=== PATIENT | female | born 1980 | race Caucasian/White ===

== ENCOUNTER 2018-04-10 18:27 | Emergency (ER) | payer MEDICAID, OTHER ==
[~2018-04-10] VITALS: Ht 152.4 cm; Wt 70.0 kg
[2018-04-10] MEDS ORDERED: HYDROcodone/APAP 5/325 TABLET ONE ×2 (19:20→20:45)
[2018-04-10] MEDS: HYDROcodone/APAP 5/325 TABLET PO PRN ×2 (19:21→19:23)
[2018-04-10] MEDS ORDERED: LIDOCAINE-MPF 1%, 5ML INFIL ONE (20:30)
[2018-04-10 21:00] VITALS: BP 128/84
[2018-04-10] MEDS ORDERED: HYDROcodone/APAP 5/325 TABLET PO ONE (21:00)
== END 2018-04-10 20:52 | disposition home or self-care (01) ==
LOC: ED 19:00
DX: S93.401A Sprain of unspecified ligament of right ankle, initial encounter (principal); F17.210 Nicotine dependence, cigarettes, uncomplicated; X58.XXXA Exposure to other specified factors, initial encounter; Y93.89 Activity, other specified; Y92.89 Other specified places as the place of occurrence of the external cause; Y99.8 Other external cause status
CPT/HCPCS: 20605; 99284

== ENCOUNTER 2018-05-13 14:33 | Emergency (ER) | payer MEDICAID ==
[~2018-05-13] VITALS: Ht 152.4 cm; Wt 59.2 kg
[2018-05-13 14:53] VITALS: BP 112/75
[2018-05-13 17:32] LABS: CULTURE INDICATED? YES; MICROSCOPIC INDICATED
== END 2018-05-13 18:02 | disposition home or self-care (01) ==
LOC: ED 16:53
DX: O26.891 Other specified pregnancy related conditions, first trimester (principal); O99.331 Smoking (tobacco) complicating pregnancy, first trimester; F11.10 Opioid abuse, uncomplicated; Z3A.01 Less than 8 weeks gestation of pregnancy
CPT/HCPCS: 81001; 87086; 99283

== ENCOUNTER 2018-06-04 00:59 | Emergency (ER) | payer MEDICAID ==
[~2018-06-04] VITALS: Ht 152.4 cm; Wt 60.5 kg
[2018-06-04 01:03] VITALS: BP 135/75
[2018-06-04] MEDS ORDERED: LIDOCAINE 2%, 20ML SQ ONE (01:30)
[2018-06-04] MEDS ORDERED: LIDOCAINE-MPF 1%, 5ML ONE ×2 (01:39→01:40)
[2018-06-04] MEDS ORDERED: LIDOCAINE-MPF 1%, 5ML INFIL ONE (02:00)
--- NOTE | 2018-06-04 02:47 | NUR ---
PT D/C WITH D/C SUMMARY AND SCRIPT. PT VERBALIZES UNDERSTANDING OF NEED FOR FOLLOW THROUGH WITH [facility] TO COMPLETION. PT AMBULATES TO REGISTRATION DESK WITH STEADY GAIT FOR D/C HOME. PER PT, PT WILL WAIT IN LOBBY FOR HUSBANDS D/C WHO IS ALSO A PT IN [facility] CURRENTLY.
== END 2018-06-04 02:55 | disposition home or self-care (01) ==
LOC: ED 02:50
DX: L03.221 Cellulitis of neck (principal); L02.11 Cutaneous abscess of neck; F17.200 Nicotine dependence, unspecified, uncomplicated; Z88.2 Allergy status to sulfonamides
CPT/HCPCS: 99283